=== PATIENT | female | born 1975 | race Two or more races ===

== ENCOUNTER 2017-02-11 18:50 | Emergency (ER) | payer MEDICAID ==
[~2017-02-11] VITALS: Ht 154.9 cm; Wt 62.1 kg
== END 2017-02-11 19:30 | disposition home or self-care (01) ==
LOC: ER 18:56
DX: H00.034 Abscess of left upper eyelid (principal); H10.9 Unspecified conjunctivitis
CPT/HCPCS: 99283; A4606; Z7610

== ENCOUNTER 2017-03-25 15:15 | Emergency (ER) | payer MEDICAID ==
[~2017-03-25] VITALS: Ht 152.4 cm; Wt 63.5 kg
[2017-03-25 15:15] VITALS: BP 115/73
== END 2017-03-25 16:42 | disposition home or self-care (01) ==
LOC: ER 15:17
DX: M25.521 Pain in right elbow (principal)
CPT/HCPCS: 73080; 99284; A4606; Z7610

== ENCOUNTER 2018-09-12 16:23 | Emergency (ER) | payer MEDICAID, OTHER ==
[~2018-09-12] VITALS: Ht 152.4 cm; Wt 65.8 kg
[2018-09-12 17:13] VITALS: BP 113/77
[2018-09-12] MEDS ORDERED: FLUORESCEIN SODIUM OPHTH 1 EA STRIP OP ONE (17:30)
[2018-09-12] MEDS ORDERED: TETRACAINE HCL/PF 0.5% UD 2 ML BOTTLE LEFTEYE ONE (17:30)
[2018-09-12] MEDS ORDERED: FLUORESCEIN SODIUM OPHTH 1 EA STRIP ONE (17:32)
[2018-09-12] MEDS ORDERED: TETRACAINE HCL/PF 0.5% UD 2 ML BOTTLE ONE (17:33)
== END 2018-09-12 18:00 | disposition home or self-care (01) ==
LOC: ER 16:23
DX: S05.02XA Injury of conjunctiva and corneal abrasion without foreign body, left eye, initial encounter (principal); X58.XXXA Exposure to other specified factors, initial encounter; Y93.89 Activity, other specified; Y92.89 Other specified places as the place of occurrence of the external cause; Y99.8 Other external cause status

== ENCOUNTER 2019-04-05 10:12 | Emergency (ER) | payer OTHER ==
[~2019-04-05] VITALS: Ht 152.4 cm; Wt 66.7 kg
--- NOTE | 2019-04-05 10:12 | NUR ---
PT CAME INTO THE ED C/O LOCALIZED ABDOMINAL, PELVIC, AND R ARM PAIN. PT AAOX4, VSS, BREATHING EVEN AND UNLABORED ON ROOM AIR. -NAUSEA, -VOMITING. PT CONNECTED TO THE MONITOR AND POX.
--- NOTE | 2019-04-05 10:34 | NUR ---
PT AMBULATED TO THE RESTROOM
[2019-04-05] MEDS ORDERED: CEFTRIAXONE 1GM BAG (ER ONLY) 50 ML IV ONE ×2 (10:48→11:00)
[2019-04-05] MEDS ORDERED: ONDANSETRON HCL/PF 4 MG/2 ML VIAL ONE (10:48)
[2019-04-05] MEDS ORDERED: MORPHINE SULFATE INJ 2 MG/ML DISP.SYRIN ONE (10:49)
[2019-04-05 10:58] LABS: APPEARANCE,URINE Clear (CLEAR); BILIRUBIN,URINE Negative (NEGATIVE); BLOOD, URINE Moderate Ery/uL (NEGATIVE); COLOR,URINE Yellow (YELLOW); KETONES,URINE Negative (NEGATIVE); LEUKOCYTE ESTERASE ,URINE Moderate (NEGATIVE); NITRITE, URINE Positive (NEGATIVE); PH,URINE 6.5 (5.0-8.0); PROTEIN,URINE Negative (NEGATIVE); UGLUCOSE Negative (NEGATIVE); UROBILINOGEN,URINE 0.2 EU/dL (0.2)
[2019-04-05 11:00] LABS: BACTERIA,URINE 1+ /HPF (None Seen); SQUAMOUS EPITHELIAL CELL,UR Few /HPF (None Seen)
[2019-04-05] MEDS ORDERED: IV NS 0.9% 500 ML BAG IV ONE (11:00)
[2019-04-05] MEDS ORDERED: MORPHINE SULFATE INJ 2 MG/ML DISP.SYRIN IV ONE (11:00)
[2019-04-05] MEDS ORDERED: ONDANSETRON HCL/PF 4 MG/2 ML VIAL IVP ONE (11:00)
[2019-04-05] MEDS ORDERED: KETOROLAC TROMETHAMINE INJ 30 MG/ML VIAL ONE (11:07)
[2019-04-05 11:11] LABS: BASOPHILS # (AUTO) 0.1 /CMM (0.0-0.2); BASOPHILS % (AUTO) 1.2 % (0.0-2.0); EOSINOPHILS % (AUTO) 1.3 % (0.0-6.0); HEMATOCRIT 43 % (33-45); HEMOGLOBIN 14.2 g/dL (11.5-14.8); LYMPHOCYTES # (AUTO) 2.4 /CMM (0.8-4.8); LYMPHOCYTES % (AUTO) 23.6 % (20.0-44.0); MEAN CORPUSCULAR HGB CONC 33 g/dl (31.0-36.0); MEAN CORPUSCULAR VOLUME 89 fL (82-100); MONOCYTES # (AUTO) 0.6 /CMM (0.1-1.30); NEUTROPHILS # (AUTO) 6.8 /CMM (1.8-8.9); NEUTROPHILS % (AUTO) 67.9 % (43.0-81.0); PLATELET COUNT (AUTO) 359 /CMM (150-450); RED BLOOD CELL COUNT(AUTO) 4.81 MIL/uL (4.0-5.2)
[2019-04-05 11:28] LABS: CALCIUM, SERUM 9.5 mg/dL (8.5-10.1); CREATININE 0.9 mg/dL (0.6-1.3)
[2019-04-05] MEDS ORDERED: KETOROLAC TROMETHAMINE INJ 30 MG/ML VIAL IV ONE (11:30)
[2019-04-05 12:28] VITALS: BP 132/85
--- NOTE | 2019-04-05 12:28 | NUR ---
Patient discharged to home in stable condition. Written and verbal after care instructions given. Patient verbalizes understanding of instruction.IV removed. Catheter intact and site benign. Pressure and 4x4 applied to site. No bleeding noted.
== END 2019-04-05 12:37 | disposition home or self-care (01) ==
LOC: ER 10:14
DX: N39.0 Urinary tract infection, site not specified (principal)
CPT/HCPCS: 36415; 80048; 81001; 84703; 85025; 87086; 96365; 96375; 99283; J0696; J1885; J2405; J7040; 81000-TC; J2270

== ENCOUNTER 2020-10-11 07:24 | Emergency (ER) | payer OTHER ==
[~2020-10-11] VITALS: Ht 152.4 cm; Wt 63.5 kg
[2020-10-11 07:30] VITALS: BP 129/78
--- NOTE | 2020-10-11 07:41 | NUR ---
The patient presented to ER for c/o right hand pain x 3 days. The patient denies any trauma. The patient rates pain 10/10. Will continue to monitor the patient.
[2020-10-11 08:14] LABS: BASOPHILS # (AUTO) 0.1 /CMM (0.0-0.2); EOSINOPHILS % (AUTO) 1.7 % (0.0-6.0); HEMATOCRIT 40 % (33-45); HEMOGLOBIN 13.3 g/dL (11.5-14.8); LYMPHOCYTES # (AUTO) 1.8 /CMM (0.8-4.8); LYMPHOCYTES % (AUTO) 21.2 % (20.0-44.0); MEAN CORPUSCULAR HGB CONC 33 g/dl (31.0-36.0); MEAN CORPUSCULAR VOLUME 89 fL (82-100); MONOCYTES # (AUTO) 0.4 /CMM (0.1-1.30); MONOCYTES % (AUTO) 4.3 % (2.0-12.0); NEUTROPHILS % (AUTO) 71.8 % (43.0-81.0); PLATELET COUNT (AUTO) 375 /CMM (150-450); RED BLOOD CELL COUNT(AUTO) 4.53 MIL/uL (4.0-5.2); WHITE BLOOD COUNT (AUTO) 8.3 K/uL (4.3-11.0)
[2020-10-11 08:26] LABS: POTASSIUM 4.1 mmol/L (3.5-5.1)
[2020-10-11 08:29] LABS: CALCIUM, SERUM 8.6 mg/dL (8.5-10.1)
[2020-10-11] MEDS ORDERED: TRAM50TA2 PO (08:31)
[2020-10-11] MEDS ORDERED: IBUP-1955 PO (08:31)
[2020-10-11] MEDS ORDERED: KETOROLAC TROMETHAMINE INJ 30 MG/ML VIAL ONE (08:36)
[2020-10-11] MEDS: KETOROLAC TROMETHAMINE INJ 60 MG/2 ML VIAL IM ONE (08:41)
== END 2020-10-11 08:45 | disposition home or self-care (01) ==
LOC: ER 07:29
DX: G56.21 Lesion of ulnar nerve, right upper limb (principal)
CPT/HCPCS: 36415; 73090; 73130; 80048; 85025; 96372; 99284; J1885